=== PATIENT | male | born 1975 | race Hispanic/Latino ===

== ENCOUNTER 2020-09-04 19:55 | Emergency (ER) | payer SELFPAY ==
[~2020-09-04] VITALS: Ht 162.6 cm; Wt 72.7 kg
[2020-09-04] MEDS ORDERED: AMOXICILLIN500 MG PO ×2 (21:08)
[2020-09-04 21:10] VITALS: BP 114/82
== END 2020-09-04 21:10 | disposition home or self-care (01) | DRG 605 ==
LOC: ED 19:55
PROC: 0HQFXZZ Repair Right Hand Skin, External Approach (ICD-10-PCS; principal; 2020-09-04)
DX: S61.411A Laceration without foreign body of right hand, initial encounter (principal); W01.119A Fall on same level from slipping, tripping and stumbling with subsequent striking against unspecified sharp object, initial encounter; Y93.89 Activity, other specified; Y92.89 Other specified places as the place of occurrence of the external cause; Y99.0 Civilian activity done for income or pay

== ENCOUNTER 2020-09-06 20:07 | Emergency (ER) | payer SELFPAY ==
[~2020-09-06] VITALS: Ht 162.6 cm; Wt 62.0 kg
[~2020-09-06 20:07] MED LIST: AMOXICILLIN500 MG PO
[2020-09-06 21:10] VITALS: BP 130/71
== END 2020-09-06 21:08 | disposition home or self-care (01) | DRG 950 ==
LOC: ED 20:07
DX: S61.411D Laceration without foreign body of right hand, subsequent encounter (principal); X58.XXXD Exposure to other specified factors, subsequent encounter